=== PATIENT | male | born 1945 | race Caucasian/White ===

== ENCOUNTER → 2023-03-12 | Outpatient (CLI) | payer SELFPAY ==
--- NOTE | 2023-03-12 11:30 | XR ---
EXAMINATION TYPE: XR chest 2V DATE OF EXAM: 03/12/2023 10:10 AM COMPARISON: None TECHNIQUE: XR chest 2V Frontal and lateral views of the chest. CLINICAL INDICATION:Male, 78 years old with history of Z00.00; FINDINGS: Lungs/Pleura: Small left pleural effusion with associated atelectasis. Hyperinflation. No pneumothora x. Biapical pleural thickening. Pulmonary vascularity: Unremarkable. Heart/mediastinum: Cardiomediastinal silhouette is unremarkable. Atherosclerotic calcifications are seen in the aorta. Musculoskeletal: No acute osseous pathology. IMPRESSION: Background COPD changes with small left pleural effusion with associated atelectasis.
== END | disposition home or self-care (01) ==
LOC: RADXRMAIN 09:55
PROVIDERS: ATTEND Internal Medicine
DX: Z00.00 Encounter for general adult medical examination without abnormal findings (principal); J44.9 Chronic obstructive pulmonary disease, unspecified; J90 Pleural effusion, not elsewhere classified; J98.11 Atelectasis; J69.0 Pneumonitis due to inhalation of food and vomit
CPT/HCPCS: 71046

== ENCOUNTER 2023-05-04 09:12 | Observation (INO) | payer MEDICARE ==
--- NOTE | 2023-05-04 12:01 | ED ---
General Adult HPI - General Chief complaint: Recheck/Abnormal Lab/Rx Stated complaint: peg tube Time Seen by Provider: 05/04/23 09:26 Source: patient, RN notes reviewed Mode of arrival: ambulatory Limitations: no limitations - History of Present Illness Initial comments: 78-year-old male presents to the emergency department with chief complaint of issues with his PEG tube. He states that this was placed in January in [place]. He states that over the last week it has been giving him trouble. He reports that it fell out and he put it back in. - Related Data Home Medications Medication Instructions Recorded Confirmed Levothyroxine Sodium [Synthroid] 100 mcg PEG/G-TUBE DAILY 05/04/23 05/04/23 Multivitamins, Thera Liquid 1 dose PEG/G-TUBE DAILY 05/04/23 05/04/23 [Theragran Liquid (formulary)] Previous Rx's Medication Instructions Recorded cephALEXin [cephALEXin Oral Susp] 500 mg PO Q8HR #210 ml 05/05/23 Allergies Allergy/AdvReac Type Severity Reaction Status Date / Time No Known Allergies Allergy Verified 05/04/23 16:36 Review of Systems ROS Statement: Those systems with pertinent positive or pertinent negative responses have been documented in the HPI. ROS Other: All systems not noted in ROS Statement are negative. Past Medical History Additional Past Medical History / Comment(s): Pneumonia, dysphagia, head and neck CA. History of Any Multi-Drug Resistant Organisms: None Reported Additional Past Surgical History / Comment(s): Peg tube. Past Psychological History: No Psychological Hx Reported Smoking Status: Never smoker Past Alcohol Use History: None Reported Past Drug Use History: None Reported General Exam Limitations: no limitations General appearance: alert, in no apparent distress Head exam: Present: atraumatic, normocephalic, normal inspection Eye exam: Present: normal appearance, PERRL, EOMI. Absent: scleral icterus, conjunctival injection, periorbital swelling ENT exam: Present: normal exam, mucous membranes moist Neck exam: Present: normal inspection. Absent: tenderness, meningismus, lymphadenopathy Respiratory exam: Present: normal lung sounds bilaterally. Absent: respiratory distress, wheezes, rales, rhonchi, stridor Cardiovascular Exam: Present: regular rate, normal rhythm, normal heart sounds. Absent: systolic murmur, diastolic murmur, rubs, gallop, clicks GI/Abdominal exam: Present: soft, normal bowel sounds. Absent: distended, tenderness, guarding, rebound, rigid Extremities exam: Present: normal inspection, full ROM, normal capillary refill. Absent: tenderness, pedal edema, joint swelling, calf tenderness Neurological exam: Present: alert, oriented X3 Psychiatric exam: Present: normal affect, normal mood Skin exam: Present: warm, dry, intact, normal color. Absent: rash Course Vital Signs 05/04/23 05/04/23 05/04/23 09:18 15:16 18:44 Temperature 97.5 F L Pulse Rate 79 67 69 Respiratory 18 18 16 Rate Blood Pressure 132/99 91/66 87/47 O2 Sat by Pulse 99 98 98 Oximetry 05/04/23 05/04/23 05/05/23 19:25 22:14 04:51 Temperature Pulse Rate 71 71 69 Respiratory 16 16 18 Rate Blood Pressure 105/71 95/74 101/68 O2 Sat by Pulse 99 97 98 Oximetry Medical Decision Making - Medical Decision Making Was pt. sent in by a medical professional or institution ([facility], [employer], urgent care, hospital, or group home...) When possible be specific @ -No Did you speak to anyone other than the patient for history (EMS, parent, family, police, friend...)? What history was obtained from this source @ -No Did you review nursing and triage notes (agree or disagree)? Why? @ -I reviewed and agree with nursing and triage notes Were old charts reviewed (outside hosp., previous admission, EMS record, old EKG, old radiological studies, urgent care reports/EKG's, group home records)? Report findings @ -No old charts were reviewed Differential Diagnosis (chest pain, altered mental status, abdominal pain women, abdominal pain men, vaginal bleeding, weakness, fever, dyspnea, syncope, headache, dizziness, GI bleed, back pain, seizure, CVA, palpatations, mental health, musculoskeletal)? @ -not applicable EKG interpreted by me (3pts min.). @ -None X-rays interpreted by me (1pt min.). @ -Post PEG tube replacement XR appears to be in place CT interpreted by me (1pt min.). @ -None done U/S interpreted by me (1pt. min.). @ -None done What testing was considered but not performed or refused? (CT, X-rays, U/S, labs)? Why? @ -None What meds were considered but not given or refused? Why? @ -None Did you discuss the management of the patient with other professionals (professionals i.e. , PA, ENRICHMENT TEACHER, lab, RT, psych nurse, social professionals, assembler truck trailer, teacher, ship's officer, senior case manager)? Give summary @ -Management discussed with Dr. Madison who recommends admission for repl acement Was smoking cessation discussed for >3mins.? @ -No Was critical care preformed (if so, how long)? @ -No Were there social determinants of health that impacted care today? How? (Homelessness, low income, unemployed, alcoholism, drug addiction, transportation, low edu. Level, literacy, decrease access to med. care, fci, rehab)? @ -No Was there de-escalation of care discussed even if they declined (Discuss DNR or withdrawal of care, Hospice)? DNR status @ -No What co-morbidities impacted this encounter? (DM, HTN, Smoking, COPD, CAD, Cancer, CVA, ARF, Chemo, Hep., AIDS, mental health diagnosis, sleep apnea, morbid obesity)? @ -None Was patient admitted / discharged? Hospital course, mention meds given and route, prescriptions, significant lab abnormalities, going to OR and other pertinent info. @ -admitted. 78-year-old male presents emergency department chief complaint of PEG tube issues. He states that it fell out last night and he attempted to replace it. Replacement was attempted in the ED and XR obtained. Tube appeared to be in place but patient was complaining of pain. Tube was not in all the way. Discussed with Dr. Madison who is recommending admission for replacement as the site likely closed. case discussed with Dr. Moulton who is accepting of the admission. Patient stable at time of admission. Case discussed with Dr. Berkowitz. Undiagnosed new problem with uncertain prognosis? @ -No Drug Therapy requiring intensive monitoring for toxicity (Heparin, Nitro, Insulin, Cardizem)? @ -No Were any procedures done? @ -No Diagnosis/symptom? @ -PEG tube complication Acute, or Chronic, or Acute on Chronic? @ -acute Uncomplicated (without systemic symptoms) or Complicated (systemic symptoms)? @ -uncomplicated Side effects of treatment? @ -No Exacerbation, Progression, or Severe Exacerbation? @ -No Poses a threat to life or bodily function? How? (Chest pain, USA, ME, pneumonia, PE, COPD, DKA, ARF, appy, cholecystitis, CVA, Diverticulitis, Homicidal, Suicidal, threat to staff... and all critical care pts) @ -No - Lab Data Result diagrams: 05/04/23 15:30 05/05/23 05:50 Lab Results 05/04/23 05/04/23 Range/Units 15:30 15:30 WBC 5.0 (3.8-10.6) k/uL RBC 4.61 (4.30-5.90) m/uL Hgb 14.5 (13.0-17.5) gm/dL Hct 44.3 (39.0-53.0) % MCV 96.2 (80.0-100.0) fL MCH 31.5 (25.0-35.0) pg MCHC 32.7 (31.0-37.0) g/dL RDW 15.1 (11.5-15.5) % Plt Count 200 (150-450) k/uL MPV 8.0 Neutrophils % 60 % Lymphocytes % 31 % Monocytes % 5 % Eosinophils % 1 % Basophils % 0 % Neutrophils # 3.0 (1.3-7.7) k/uL Lymphocytes # 1.6 (1.0-4.8) k/uL Monocytes # 0.3 (0-1.0) k/uL Eosinophils # 0.1 (0-0.7) k/uL Basophils # 0.0 (0-0.2) k/uL Sodium 139 (137-145) mmol/L Potassium 4.7 (3.5-5.1) mmol/L Chloride 104 (98-107) mmol/L Carbon Dioxide 30 (22-30) mmol/L Anion Gap 5 mmol/L BUN 45 H (9-20) mg/dL Creatinine 0.97 (0.66-1.25) mg/dL Est GFR (CKD-EPI)AfAm 86 (>60 ml/min/1.73 sqM) Est GFR (CKD-EPI)NonAf 75 (>60 ml/min/1.73 sqM) Glucose 86 (74-99) mg/dL Calcium 10.0 (8.4-10.2) mg/dL Magnesium 2.4 H (1.6-2.3) mg/dL Total Bilirubin 0.5 (0.2-1.3) mg/dL AST 41 (17-59) U/L ALT 33 (4-49) U/L Alkaline Phosphatase 117 (38-126) U/L Total Protein 7.8 (6.3-8.2) g/dL Albumin 4.1 (3.5-5.0) g/dL Disposition Clinical Impression: PEG tube malfunction Disposition: ADMITTED IP TO THIS HOSP Condition: Stable Is patient prescribed a controlled substance at d/c from ED?: No
--- NOTE | 2023-05-04 13:03 | XR ---
EXAMINATION TYPE: XR KUB DATE OF EXAM: 05/04/2023 COMPARISON: NONE HISTORY: PEG tube injection TECHNIQUE: One view abdominal series FINDINGS: Contrast is seen within the stomach. Density centrally likely also contained within the stomach. But too small to characterize. Hypertrophic and degenerative changes spine. Arthropathy of the right hip and postsurgical change left hip. IMPRESSION: 1. Contrast appears to be contained within the stomach.
[2023-05-04] MEDS ORDERED: NALOXONE 0.4 MG/ML 1 ML VIAL IV PRN (14:42)
[2023-05-04] MEDS: SODIUM CHLORIDE 0.9% 1,000 ML IV SCH (15:33)
[2023-05-04 15:42] LABS: Basophils % (A) 0 %; Eosinophils # (A) 0.1 k/uL (0-0.7); Eosinophils % (A) 1 %; HCT 44.3 % (39.0-53.0); HGB 14.5 gm/dL (13.0-17.5); Lymphocytes # (A) 1.6 k/uL (1.0-4.8); Lymphocytes % (A) 31 %; MCH 31.5 pg (25.0-35.0); MCHC 32.7 g/dL (31.0-37.0); MCV 96.2 fL (80.0-100.0); Monocytes # (A) 0.3 k/uL (0-1.0); Monocytes % (A) 5 %; Neutrophils % (A) 60 %; Platelet Count 200 k/uL (150-450); RBC 4.61 m/uL (4.30-5.90); RDW 15.1 % (11.5-15.5)
[2023-05-04 15:55] LABS: ALT 33 U/L (4-49); AST 41 U/L (17-59); African American GFR (CKD) 86 (>60 ml/min/1.73 sqM); Albumin 4.1 g/dL (3.5-5.0); Alkaline Phosphatase 117 U/L (38-126); Anion Gap 5 mmol/L; Blood Urea Nitrogen 45 mg/dL (9-20); Carbon Dioxide 30 mmol/L (22-30); Chloride 104 mmol/L (98-107); Glucose 86 mg/dL (74-99); Magnesium 2.4 mg/dL (1.6-2.3); Non-African American GFR(CKD) 75 (>60 ml/min/1.73 sqM); Potassium 4.7 mmol/L (3.5-5.1); Sodium 139 mmol/L (137-145); Total Bilirubin 0.5 mg/dL (0.2-1.3); Total Protein 7.8 g/dL (6.3-8.2)
[2023-05-04] MEDS: HEPARIN SODIUM,PORCINE 5,000 UNIT/ML 1 ML VIAL SQ SCH (22:11)
--- NOTE | 2023-05-05 02:10 | P.HPIM ---
History of Present Illness H&P Date: 05/04/23 Chief Complaint: Dislodged PEG tube Patient is a 78-year-old male with a known history of head and neck cancer several years ago status post radiation, history of PEG tube placement due to dysphagia and aspiration presents to ER due to dislodged PEG tube. Patient states that PEG tube was placed in January in [place]. Patient follows with Dr. Frank as an outpatient. Patient states that he developed some swelling/induration at the PEG tube site and last night PEG tube dislodgment came out. She could not put it back in. Came to ER for further evaluation. Otherwise denies any bleeding from the PEG tube site. Patient also states that there is increased redness around the PEG tube and pain. Denied purulent discharge. No fever no chills. No cough or sputum production. No headache or dizziness or lightheadedness. Laboratory data showed WBC 5.0 hemoglobin 14.5 and platelets 200 Sodium 139 potassium 4.7 chloride 104 bicarb is 30 BUN 45 creatinine 0.97 and magnesium 2.4. Review of Systems Constitutional: Patient denies any fever or chills . no Generalized weakness. Abdomen: Patient denied any nausea or vomiting or abd. pain Cardiovascular: Patient denies any chest pain or short of breath no palpitations. Respiratory: patient denied any cough . no sputum production. No shortness of breath Neurologic: Patient denied any numbness or tingling headache. Musculoskeletal: Patient denies any complaints of joint swelling or deformity. Skin: Negative Psychiatric: Negative Endocrine: No heat or cold intolerance. No recent weight gain. Genitourinary: No dysuria or hematuria. All other 14 point ROS negative except the above Past Medical History Additional Past Medical History / Comment(s): Pneumonia, dysphagia, head and neck CA. History of Any Multi-Drug Resistant Organisms: None Reported Additional Past Surgical History / Comment(s): Peg tube. Past Psychological History: No Psychological Hx Reported Smoking Status: Never smoker Past Alcohol Use History: None Reported Past Drug Use History: None Reported Medications and Allergies Home Medications Medication Instructions Recorded Confirmed Type Levothyroxine Sodium [Synthroid] 100 mcg PEG/G-TUBE DAILY 05/04/23 05/04/23 History Multivitamins, Thera Liquid 1 dose PEG/G-TUBE DAILY 05/04/23 05/04/23 History [Theragran Liquid (formulary)] Allergies Allergy/AdvReac Type Severity Reaction Status Date / Time No Known Allergies Allergy Verified 05/04/23 16:36 Physical Exam Vitals: Vital Signs Temp Pulse Resp BP Pulse Ox 05/04/23 19:25 71 16 105/71 99 05/04/23 18:44 69 16 87/47 98 05/04/23 15:16 67 18 91/66 98 05/04/23 09:18 97.5 F L 79 18 132/99 99 Intake and Output 05/04/23 05/04/23 05/04/23 06:59 14:59 22:59 Other: Weight 64.864 kg PHYSICAL EXAMINATION: Patient is lying in the bed comfortably, no acute distress, awake alert and oriented.. HEENT: Normocephalic. Neck is supple. Pupils reactive. Nostrils clear. Oral cavity is moist. Neck reveals no JVD, carotid bruits, or thyromegaly. CHEST EXAMINATION: Trachea is central. Symmetrical expansion. Lung kevin clear to auscultation and percussion. CARDIAC: Normal S1, S2 with no gallops. No murmurs ABDOMEN: Soft. Bowel sounds present. Nontender. No organomegaly. No abdominal bruits. Induration over the upper margin of the PEG tube insertion site and surrounding redness. Minimal tenderness. Extremities: reveal no edema. No clubbing or cyanosis Neurologically awake, alert, oriented x3 with well-coordinated movements. No focal deficits noted Skin: No rash or skin lesions. Psychiatric: Coperative. Nonsuicidal, Musculoskeletal: No joint swelling or deformity. Normal range of motion. Results CBC & Chem 7: 05/04/23 15:30 05/04/23 15:30 Labs: Abnormal Lab Results - Last 24 Hours (Table) 05/04/23 Range/Units 15:30 BUN 45 H (9-20) mg/dL Magnesium 2.4 H (1.6-2.3) mg/dL Thrombosis Risk Factor Assmnt - DVT/VTE Prophylaxis DVT/VTE Prophylaxis: Pharmacologic Prophylaxis ordered Assessment and Plan Assessment: PEG tube dislodged with possible surrounding skin excoriation/cellulitis. History of head and neck cancer several years ago s/p radiation Recent history of dysphagia and aspiration status post PEG tube placement Hypothyroidism DVT prophylax with heparin subcu Plan: Patient will be currently on IV hydration with normal saline. Was started on cefazolin. General surgery was consulted for evaluation and replacement of PEG tube. Continue with home medications and follow-up.
[2023-05-05] MEDS: SODIUM CHLORIDE 0.9% 1,000 ML IV SCH ×3 (03:29→14:38)
[2023-05-05] MEDS ORDERED: LEVOTHYROXINE 100 MCG TAB PEG/G-TUBE SCH (06:30)
[2023-05-05] MEDS ORDERED: MULTIVITAMINS, THERA LIQUID 237 ML BOTTLE PEG/G-TUBE SCH (09:00)
[2023-05-05 09:49] VITALS: RESP 16
[2023-05-05] MEDS: HEPARIN SODIUM,PORCINE 5,000 UNIT/ML 1 ML VIAL SQ SCH (10:17)
[2023-05-05 11:08] LABS: BUN/Creat Ratio 30.09 Ratio (12.00-20.00); Blood Urea Nitrogen 33.1 mg/dL (9.0-27.0); Calcium 9.1 mg/dL (8.7-10.3); Carbon Dioxide 24.7 mmol/L (21.6-31.8); Chloride 107 mmol/L (96-109); Glucose 74 mg/dL (70-110); Potassium 4.9 mmol/L (3.5-5.5); Sodium 140 mmol/L (135-145)
[2023-05-05] MEDS ORDERED: LACTATED RINGERS 1,000 ML IV ONE (11:44)
--- NOTE | 2023-05-05 11:57 | P.GSCN ---
History of Present Illness Consult date: 05/05/23 Reason for Consult: Malfunctioning PEG tube History of present illness: Patient comes in the ER with complaints of a PEG tube having fallen out. She needs a feeding tube for dysphagia and malnutrition. He was started on antibiotics. We were consulted for that reason. Review of Systems The patient denies any acute changes in vision or hearing,, no chest pain or shortness of breath, no dysuria or hematuria, no headache, no runny nose, no rectal bleeding or melena, no unexplained weight loss Past Medical History Additional Past Medical History / Comment(s): Pneumonia, dysphagia, head and neck CA. History of Any Multi-Drug Resistant Organisms: None Reported Past Surgical History: Appendectomy Additional Past Surgical History / Comment(s): Peg tube. Past Psychological History: No Psychological Hx Reported Smoking Status: Never smoker Past Alcohol Use History: None Reported Past Drug Use History: None Reported Medications and Allergies Home Medications Medication Instructions Recorded Confirmed Type Levothyroxine Sodium [Synthroid] 100 mcg PEG/G-TUBE DAILY 05/04/23 05/04/23 History Multivitamins, Thera Liquid 1 dose PEG/G-TUBE DAILY 05/04/23 05/04/23 History [Theragran Liquid (formulary)] Allergies Allergy/AdvReac Type Severity Reaction Status Date / Time No Known Allergies Allergy Verified 05/04/23 16:36 Surgical - Exam Vital Signs Temp Pulse Resp BP Pulse Ox 97.5 F L 79 18 132/99 99 05/04/23 09:18 05/04/23 09:18 05/04/23 09:18 05/04/23 09:18 05/04/23 09:18 Results - Labs 05/04/23 15:30 05/05/23 05:50 Abnormal Lab Results - Last 24 Hours (Table) 05/04/23 05/05/23 Range/Units 15:30 05:50 BUN 45 H 33.1 H (9-20) mg/dL BUN/Creatinine Ratio 30.09 H (12.00-20.00) Ratio Magnesium 2.4 H (1.6-2.3) mg/dL Diabetes panel 05/04/23 05/05/23 Range/Units 15:30 05:50 Sodium 139 140 (137-145) mmol/L Potassium 4.7 4.9 (3.5-5.1) mmol/L Chloride 104 107 (98-107) mmol/L Carbon Dioxide 30 24.7 (22-30) mmol/L BUN 45 H 33.1 H (9-20) mg/dL Creatinine 0.97 1.1 (0.66-1.25) mg/dL Glucose 86 74 (74-99) mg/dL Calcium 10.0 9.1 (8.4-10.2) mg/dL AST 41 (17-59) U/L ALT 33 (4-49) U/L Alkaline Phosphatase 117 (38-126) U/L Total Protein 7.8 (6.3-8.2) g/dL Albumin 4.1 (3.5-5.0) g/dL Calcium panel 05/04/23 05/05/23 Range/Units 15:30 05:50 Calcium 10.0 9.1 (8.4-10.2) mg/dL Albumin 4.1 (3.5-5.0) g/dL Pituitary panel 05/04/23 05/05/23 Range/Units 15:30 05:50 Sodium 139 140 (137-145) mmol/L Potassium 4.7 4.9 (3.5-5.1) mmol/L Chloride 104 107 (98-107) mmol/L Carbon Dioxide 30 24.7 (22-30) mmol/L BUN 45 H 33.1 H (9-20) mg/dL Creatinine 0.97 1.1 (0.66-1.25) mg/dL Glucose 86 74 (74-99) mg/dL Calcium 10.0 9.1 (8.4-10.2) mg/dL Adrenal panel 05/04/23 05/05/23 Range/Units 15:30 05:50 Sodium 139 140 (137-145) mmol/L Potassium 4.7 4.9 (3.5-5.1) mmol/L Chloride 104 107 (98-107) mmol/L Carbon Dioxide 30 24.7 (22-30) mmol/L BUN 45 H 33.1 H (9-20) mg/dL Creatinine 0.97 1.1 (0.66-1.25) mg/dL Glucose 86 74 (74-99) mg/dL Calcium 10.0 9.1 (8.4-10.2) mg/dL Total Bilirubin 0.5 (0.2-1.3) mg/dL AST 41 (17-59) U/L ALT 33 (4-49) U/L Alkaline Phosphatase 117 (38-126) U/L Total Protein 7.8 (6.3-8.2) g/dL Albumin 4.1 (3.5-5.0) g/dL Assessment and Plan (1) PEG tube malfunction Narrative/Plan: Will proceed with EGD and PEG tube replacement. Risks of bleeding, infection, bowel perforation, inability to place catheter discussed. He understands and wishes to proceed. Current Visit: Yes Status: Acute Code(s): K94.23 - GASTROSTOMY MALFUNCTION SNOMED Code(s): 717822215
--- NOTE | 2023-05-05 12:32 | P.OP ---
Date of Procedure: 05/05/23 Procedure(s) Performed: PREOPERATIVE DIAGNOSIS: Malnutrition, malfunctioning PEG tube POSTOPERATIVE DIAGNOSIS: Same PROCEDURE: EGD with PEG tube replacement SURGEON: Naz EBL: Minimal ANESTHESIA: Sedation COMPLICATIONS: None OPERATIVE PROCEDURE: The patient was placed in the supine position on the endoscopy table. The patient was sedated per anesthesia that time. The abdominal wall was inspected. The opening from the previous PEG tube was inspected. It was too tight of an opening to advance a non-balloon replacement tube. For that reason we decided to proceed with endoscopic evaluation. The initial adult gastroscope was unable to pass a stricture at the esophageal inlet. The pediatric gastroscope was then able to be advanced through this tight stricture in the stomach and esophagus were fully inspected. The stomach was fully insufflated with air. I could visualize the intragastric opening from the previous PEG tube. I suspect the hub of the PEG tube had been out of the stomach for some time as the opening on the gastric wall was difficult to visualize. A new kit was opened. Using just the stylette I was able to advance this into the stomach without difficulty and through that the guidewire. The wire was grasped with an endoscopic snare. The wire was pulled through the orop harynx. The catheter was then threaded over the guidewire and the guidewire and catheter were pulled anteriorly until the hub of the PEG tube catheter was seated against the anterior wall the stomach. The circular bolster was applied and tightened down. The endoscope was then readvanced into the stomach. There was no evidence of any bleeding and there was appropriate tightness on the bolster. The catheter was cut appropriately. The dual port feeding adapter was applied. Recommendations: May resume feeding. Recommend ENT evaluation when patient returns to [place] to discuss possible serial dilations of proximal esophageal stricture. Recommend 1 week course of antibiotics postdischarge.
--- NOTE | 2023-05-05 15:07 | DS ---
DISCHARGE SUMMARY FINAL DIAGNOSES: 1. Dislodged percutaneous endoscopic gastrostomy tube and replacement of percutaneous endoscopic gastrostomy tube placement. 2. Surrounding mild cellulitis. 3. History of dysphagia. 4. Hypothyroidism. 5. Multiple medical issues. DISCHARGE DISPOSITION: The patient will be discharged in stable condition with guarded prognosis. HISTORY OF PRESENT ILLNESS: This is a 78-year-old gentleman admitted with dislodgement of the PEG tube. Dr. Childs performed replacement. There was some mild cellulitis. Short course of antibiotics given. Otherwise, the patient is stable. PHYSICAL EXAMINATION: VITAL SIGNS: Stable. CARDIOVASCULAR: S1 and S2. ABDOMEN: Soft. NERVOUS SYSTEM: No focal deficits. DISCHARGE ADVICE AND MEDICATIONS: Resume the home medications. Resume the home tube feeds and cephalexin 500 mg q.8 for 3 days. MMODL / IJN: [id number] /
[2023-05-05 15:11] VITALS: BMI 18.8
[2023-05-05 15:19] VITALS: BP 125/78; PULSE 74; TEMP 97.9
== END 2023-05-05 18:00 | disposition home or self-care (01) ==
LOC: EC 09:12 → 6NMEDSUR 16:09
PROVIDERS: ADMIT Internal Medicine; ATTEND Internal Medicine
DX: K94.23 Gastrostomy malfunction (principal); Z85.89 Personal history of malignant neoplasm of other organs and systems; Z92.3 Personal history of irradiation; Z87.01 Personal history of pneumonia (recurrent); R13.10 Dysphagia, unspecified; Z90.49 Acquired absence of other specified parts of digestive tract; E03.9 Hypothyroidism, unspecified; L03.311 Cellulitis of abdominal wall
CPT/HCPCS: 96372; 99284; 36415; 80053; 80048; 83735; 85025; 87040; 74018; 43246; G0378 ×2; J1644; J0690 ×2; Q9967; B4087; 87077; 87186